=== PATIENT | female | born 1930 | race Caucasian/White ===

== ENCOUNTER 2016-08-19 19:38 | Inpatient (IN) | payer OTHER ==
--- NOTE | 2016-08-19 19:49 | EDPHY ---
H & P Time Seen by Provider: 08/19/16 19:41 HPI/ROS: CHIEF COMPLAINT: Shortness of breath, cough, fever HISTORY OF PRESENT ILLNESS: Patient is an 86-year-old [facility] complaining of a cough, shortness of breath and fever. They are concerned for pneumonia. She is very afraid we had anxious about the hospital according to her daughter because she had an unrecognized appendicitis several years ago after which she became critically ill. She does have a history of cardiac disease and had a double bypass 10 years ago. She does not have any history of pulmonary disease. She denies chest pain. She denies GI symptoms. REVIEW OF SYSTEMS: Constitutional: See HPI EENTM: denies: blurred vision, double vision, nose congestion Respiratory: See HPI Cardiac: denies: chest pain, irregular heart rate, lightheadedness, palpitations Gastrointestinal/Abdominal: denies: abdominal pain, diarrhea, nausea, vomiting, blood streaked stools Genitourinary: denies: dysuria, frequency, hematuria, pain Musculoskeletal: denies: joint pain, muscle pain Skin: denies: lesions, rash, jaundice, bruising Neurological: denies: headache, numbness, paresthesia, tingling, dizziness, weakness Hematologic/Lymphatic: denies: blood clots, easy bleeding, easy bruising Immunologic/allergic: denies: HIV/AIDS, transplant EXAM: GENERAL: Well-appearing, well-nourished and in no acute distress. HEAD: Atraumatic, normocephalic. EYES: Pupils equal round and reactive to light, extraocular movements intact, sclera anicteric, conjunctiva are normal. ENT: TMs normal, nares patent, oropharynx clear without exudates. Moist mucous membranes. NECK: Normal range of motion, supple without lymphadenopathy or JVD. LUNGS: Bilateral coarse sounds upper every, no wheezing HEART: Regular rate and rhythm without murmurs, rubs or gallops. ABDOMEN: Soft, nontender, normoactive bowel sounds. No guarding, no rebound. No masses appreciated. BACK: No CVA tenderness, no spinal tenderness, step-offs or deformities EXTREMITIES: Normal range of motion, no pitting or edema. No clubbing or cyanosis. NEUROLOGICAL: Cranial nerves II through XII grossly intact. Normal speech, normal gait. 5/5 strength, normal movement in all extremities, normal sensation PSYCH: Normal mood, normal affect. SKIN: Warm, dry, normal turgor, no visible rashes or lesions. Source: Patient Exam Limitations: No limitations - Medical/Surgical History Hx Asthma: No Hx Chronic Respiratory Disease: No Hx Diabetes: No Hx Cardiac Disease: Yes Hx Renal Disease: No Hx Cirrhosis: No Hx Alcoholism: No Hx HIV/AIDS: No Hx Splenectomy or Spleen Trauma: No Other PMH: AR 07, BYPASS 08,echo 11-09-2013-nml. HYST. ANX/ DEPR/MOOD/ COGNITIVE - Family History Significant Family History: No pertinent family hx - Social History Smoking Status: Never smoked Alcohol Use: Sober Drug Use: None Constitutional: Initial Vital Signs Temperature (C) 36.7 C 08/19/16 19:49 Heart Rate 101 H 08/19/16 19:49 Respiratory Rate 16 08/19/16 19:49 Blood Pressure 110/80 08/19/16 19:49 O2 Sat (%) 93 08/19/16 19:49 O2 Delivery Mode Room Air Allergies/Adverse Reactions: alendronate sodium [From Fosamax] Allergy (Unknown, Verified 08/19/16 19:49) Other-Enter Comments clopidogrel bisulfate [From Plavix] Allergy (Verified 08/19/16 19:49) Rash Home Medications: Medication Instructions Recorded Herbals/Supplements -Info Only 1 ea PO DAILY 11/17/13 Multivitamins [Multivitamin (*)] 1 each PO DAILY 11/17/13 Rosuvastatin Calcium [Crestor 40mg 40 mg PO DAILY18 #30 tab 12/09/13 (*)] Ticagrelor [Brilinta] 90 mg PO BID #60 tab 12/09/13 Quetiapine Fumarate [Seroquel Xr] 150 mg PO HS 04/12/14 fluvoxaMINE MALEATE [Luvox 100 MG 150 mg PO DAILY 04/12/14 (*)] C/E/Zn/Cu/OM3/DHA/EPA/LUT/ZEAX 1 each PO BID 08/19/16 [Preservision Areds 2 Softgel] Cholecalciferol Vit D3 [Vitamin D3 1,000 units PO DAILY 08/19/16 (*)] LORazepam [Ativan (*)] 0.5 mg PO BID PRN 08/19/16 Pantoprazole Sodium [Protonix] 20 mg PO DAILY 08/19/16 Potassium 99 mg PO BID 08/19/16 Medical Decision Making - Diagnostics EKG Interpretation: An EKG obtained and was read and documented in trace view. Please see trace view for full reading and report. , sinus rhythm, T-wave abnormalities has changed her previous ED Course/Re-evaluation: 8:40 p.m. the patient remains extremely anxious. Her states that she has not taken her p.r.n. Ativan today which she usually takes several times per day. Her oxygen saturation remains 96% on room air. Her blood pressure and heart rate are stable. 9:10 p.m. the patient has pneumonia and meets criteria for sepsis but not severe sepsis. I would give her a fluid bolus and start antibiotics for hospital-acquired pneumonia. She lives in assisted living. Her vital signs are stable but she is 86 years old and has a history of CHF as well as renal insufficiency. This places her at a port score of 118 with a 9.5% mortality risk. Discussed the case with hospitalist service will admit. Patient's D- dimer is slightly elevated but normal with age adjusted ratio. Her BNP is also minimally elevated but she has no edema in her legs or back side. Family states that she has not gained any weight. Differential Diagnosis: Partial list of the Differential diagnosis considered include but were not limited to; pneumonia, CHF, COPD, anxiety and although unlikely based on the history and physical exam, I also considered PE, acute coronary disease. - Data Points Laboratory Results: Laboratory Results 08/19/16 19:55 08/19/16 19:55 Microbiology Results: MICROBIOLOGY 08/19/16 19:55 Blood Blood Culture - Preliminary 08/19/16 21:11 Blood Blood Culture - Preliminary Medications Given: Discontinued Medications Fluvoxamine Maleate (Luvox) 150 mg PO BID [facility] Stop: 02/16/17 00:00 Last Admin: 08/20/16 00:42 Dose: 150 mg Piperacillin/Tazobactam/Dextrose (Zosyn (Premix)) 100 mls @ 200 mls/hr IV EDNOW ONE PRN Reason: Protocol Stop: 08/19/16 21:59 Last Admin: 08/19/16 21:37 Dose: 100 mls Sodium Chloride (Ns) 1,600 mls @ 3,200 mls/hr 30 ml/kg infuse over 30 min ( 1600 ml) IV EDNOW ONE Stop: 08/19/16 21:40 Last Admin: 08/19/16 21:36 Dose: 1,600 mls Lorazepam (Ativan) 0.5 mg PO EDNOW ONE Stop: 08/19/16 20:43 Last Admin: 08/19/16 21:18 Dose: 0.5 mg Miscellaneous Medication (Potassium [Potassium]) 99 mg PO BID [facility] Stop: 02/16/17 08:59 Last Admin: 08/20/16 10:32 Dose: Not Given Departure - Departure Disposition: [facility] Acute Clinical Impression: Anxiety Pneumonia Qualifiers: Pneumonia type: due to unspecified organism Laterality: unspecified laterality Lung location: unspecified part of lung Qualified Code(s): J18.9 - Pneumonia, unspecified organism Condition: Fair
--- NOTE | 2016-08-19 20:04 | CPEKG ---
Heart Rate: 89 RR Interval: 674 P-R Interval: 144 QRSD Interval: 104 QT Interval: 381 QTC Interval: 464 P [place]: 58 QRS [place]: -10 T Wave [place]: 75 EKG Severity - BORDERLINE ECG - EKG Impression: SINUS RHYTHM EKG Impression: LOW VOLTAGE IN FRONTAL LEADS EKG Impression: BORDERLINE T ABNORMALITIES, ANT-LAT LEADS EKG Impression: Unchanged from previous Electronically Signed By: Pepito Bradshaw 19-Aug-2016 20:28:58
[2016-08-19] MEDS ORDERED: LORazepam 1 MG TAB PO ONE (20:42)
[2016-08-19 20:44] LABS: % IMMATURE GRANULYOCYTES 0.2 % (0.0-1.1); ABSOLUTE IMMATURE GRANULOCYTES 0.02 10^3/uL (0.00-0.10); ADD DIFF? NO; ADD MORPH? NO; ADD SCAN? NO; ATYPICAL LYMPHOCYTE FLAG 30 (0-99); FRAGMENT RBC FLAG 0 (0-99); HEMATOCRIT 39.7 % (38.0-47.0); HEMOGLOBIN 13.4 g/dL (12.6-16.3); LEFT SHIFT FLG 0 (0-99); LIPEMIA HEMOLYSIS FLAG 90 (0-99); MEAN CELL HEMOGLOBIN 30.1 pg (27.9-34.1); MEAN CELL HEMOGLOBIN CONCENTR. 33.8 g/dL (32.4-36.7); MEAN CELL VOLUME 89.2 fL (81.5-99.8); MEAN PLATELET VOLUME 10.5 fL (8.7-11.7); PLATELET CLUMPS FLAG 10 (0-99); PLATELET COUNT 240 10^3/uL (150-400); RED BLOOD CELL COUNT 4.45 10^6/uL (4.18-5.33); RED CELL DISTRIBUTION WIDTH 16.7 % (11.5-15.2)
[2016-08-19 20:50] LABS: ANION GAP 12 mEq/L (8-16); CALCIUM 9.7 mg/dL (8.5-10.4); CARBON DIOXIDE 19 mEq/l (22-31); CHLORIDE 107 mEq/L (97-110); CREATININE 1.2 mg/dL (0.6-1.0); GLOMERULAR FILTRATION RATE 42; GLUCOSE 106 mg/dL (70-100); POTASSIUM 3.9 mEq/L (3.5-5.2); SODIUM 138 mEq/L (134-144)
[2016-08-19 21:02] LABS: TROPONIN I < 0.012 ng/mL (0-0.034)
[2016-08-19] MEDS ORDERED: NS 1,600 ML IV ONE (21:11)
[2016-08-19 21:19] LABS: INR 1.05 (0.83-1.16); PROTIME(PATIENT) 13.6 SEC (12.0-15.0)
[2016-08-19 21:20] LABS: APTT 28.9 SEC (23.0-38.0)
[2016-08-19 21:21] LABS: BILIRUBIN,TOTAL 1.4 mg/dL (0.1-1.4)
[2016-08-19] MEDS ORDERED: PIPERACILLIN/TAZO 4.5 GM/DEX 100 ML IV ONE (21:30)
[2016-08-19] MEDS ORDERED: ONDANSETRON 4 MG/2 ML VIAL IVP PRN (22:44)
[2016-08-19] MEDS ORDERED: predniSONE 20 MG TAB ONE (22:44)
[2016-08-19] MEDS ORDERED: ACETAMINOPHEN 325 MG TAB PO PRN (22:44)
[2016-08-19] MEDS: predniSONE 20 MG TAB PO SCH (22:49)
--- NOTE | 2016-08-19 23:42 | GHP ---
[f rep st] HISTORY AND PHYSICAL DATE OF ADMISSION: 08/19/2016 CHIEF COMPLAINT: Cough and fever. HISTORY OF PRESENT ILLNESS: The patient is an 86-year-old female who has been suffering from cough, shortness of breath, and fever for the last 3 days. They recently moved into a new assisted living apartment and the apartment is very draft. night, she initially felt hot and threw off he r covers and then ended up getting extremely chilled in the middle of the night from the draft. The next morning, she woke up feeling quite ill. She developed a new cough, which is nonproductive. S he has been feeling more short of breath. She has brief tinges of chest pain in her mid chest. Tod ay, she had a fever to 103 at assisted living, so she was sent to the emergency room. She does not have any confusion. PAST MEDICAL HISTORY: 1. Chronic kidney disease, baseline creatinine 1.3. 2. Coronary artery disease, status post CABG 2007. 3. Diastolic congestive heart failure. 4. Pulmonary embolus 2007. 5. Upper GI secondary to gastric ulcer. 6. Major depressive disorder. 7. Anxiety and obsessive-compulsive disorder. 8. Oxygen at night. PAST SURGICAL HISTORY: Perforated appendectomy with critical illness, which she eventually recovere d from. MEDICATIONS: Please see computer record for full detailed list. ALLERGIES: Plavix. SOCIAL HISTORY: No smoking. No alcohol. She and her recently moved into the [facility]. Code status is full. REVIEW OF SYSTEMS: Complete review of systems obtained. Review of systems is negative regarding co nstitutional, HEENT, GI, pulmonary, cardiovascular, , hematology, skin, musculoskeletal, endocrine , psych, except for positives and pertinent negatives listed as in HPI. FAMILY HISTORY: Reviewed, noncontributory to current complaint. PHYSICAL EXAMINATION: GENERAL: Well-developed well-nourished female in no acute distress. VITAL S IGNS: Temperature is 37.1, pulse 101, blood pressure 126/75, saturating 94% on room air. EYES: No rmal conjunctivae. Pupils equal, round, react to light. ENT: Normal ears and nose. Hearing intac t. Normal teeth. Oropharynx moist. NECK: Trachea midline. No thyromegaly. CHEST: Increased re spiratory effort with mild distress. LUNGS: Bilateral wheezing throughout with some rhonchi. CARD IOVASCULAR: Regular rhythm. No murmur. No lower extremity edema. ABDOMEN: Soft, nontender. No hepatosplenomegaly. SKIN: Warm, dry, intact, without rash. MUSCULOSKELETAL: No cyanosis or clubb ing. Strength 5/5 upper and lower extremities. NEURO: Cranial nerves intact. Normal sensation to light touch. PSYCH: Alert and oriented x3. Normal affect. Normal judgment. Normal memory. LABORATORY DATA: White count 9.98 hematocrit 34.7, platelets 240. Sodium 138, potassium 3.9, chlor kat 107, bicarb 19, BUN 22, creatinine 1.2, glucose 106. BNP is 629. Troponin is negative. Lactat e is 1.5. D-dimer 0.65. INR is 1.05. EKG reviewed by me. My personal interpretation is normal sinus rhythm, low voltage throughout with T-wave flattening. Chest x-ray does not show a terribly obvious infiltrate. This case was discussed with Dr. Bradshaw, emergency room physician. He diagnosed her with sepsis, i nitiated sepsis protocol, and gave a dose of IV Zosyn. ASSESSMENT AND PLAN: Problems: 1. Reactive airways disease exacerbation. She is wheezing quite extensively. She does not have a history of asthma or chronic obstructive pulmonary disease. I think this is being brought out by he r current infection. This is either acute bronchitis versus a possible pneumonia. She does have qu ite a high fever. Will treat with prednisone and nebulizers. Antibiotics for community-acquired pn eumonia including ceftriaxone and azithromycin. 2. Sepsis. She presents with fever and tachycardia. Her lactate is only 1.5. Blood cultures will be monitored. 3. Chronic congestive heart failure secondary to diastolic dysfunction. I do not see any evidence of congestive heart failure exacerbation. She is having some atypical chest pains. Will follow trop onins. My suspicion for coronary ischemia is low. Will check an echocardiogram. She does have a h istory of pulmonary embolus distantly and is not currently on any anticoagulation. Her D-dimer is o nly mildly elevated and given her active wheezing on presentation, I think I do not need to pursue p ulmonary embolus further at this time. If she fails to improve, however, this can be considered. 4. Coronary artery disease, status post coronary artery bypass grafting in 2007. Will continue her usual medication regimen and check troponins. 5. Chronic kidney disease. She is at baseline. CODE STATUS: Full. ADMISSION STATUS: Will admit to inpatient. Anticipate greater than 2 midnights required. DVT PROPHYLAXIS: She is high risk. Will prescribe subcu Lovenox. /[id number]/MODL
[2016-08-20] MEDS: AZITHROMYCIN 250 MG TAB PO SCH ×2 (00:06→10:07)
[2016-08-20] MEDS: IPRATROPIUM/ALBUTEROL 3 ML DEYVIAL IH SCH ×5 (00:31→21:32)
[2016-08-20] MEDS: QUEtiapine FUMARATE 100 MG TAB PO SCH ×2 (00:43→20:19)
[2016-08-20 05:12] LABS: ANION GAP 14 mEq/L (8-16); CALCIUM 9.1 mg/dL (8.5-10.4); CARBON DIOXIDE 19 mEq/l (22-31); CHLORIDE 106 mEq/L (97-110); CREATININE 1.3 mg/dL (0.6-1.0); GLOMERULAR FILTRATION RATE 39; GLUCOSE 226 mg/dL (70-100); POTASSIUM 3.6 mEq/L (3.5-5.2); SODIUM 139 mEq/L (134-144)
[2016-08-20 05:13] LABS: % IMMATURE GRANULYOCYTES 0.6 % (0.0-1.1); ABSOLUTE IMMATURE GRANULOCYTES 0.05 10^3/uL (0.00-0.10); ADD DIFF? NO; ADD MORPH? NO; ADD SCAN? NO; ATYPICAL LYMPHOCYTE FLAG 10 (0-99); FRAGMENT RBC FLAG 0 (0-99); HEMATOCRIT 36.9 % (38.0-47.0); HEMOGLOBIN 12.1 g/dL (12.6-16.3); LEFT SHIFT FLG 0 (0-99); LIPEMIA HEMOLYSIS FLAG 80 (0-99); MEAN CELL HEMOGLOBIN 29.4 pg (27.9-34.1); MEAN CELL HEMOGLOBIN CONCENTR. 32.8 g/dL (32.4-36.7); MEAN CELL VOLUME 89.8 fL (81.5-99.8); PLATELET CLUMPS FLAG 0 (0-99); PLATELET COUNT 190 10^3/uL (150-400); RED BLOOD CELL COUNT 4.11 10^6/uL (4.18-5.33); RED CELL DISTRIBUTION WIDTH 16.9 % (11.5-15.2)
[2016-08-20 05:24] LABS: TROPONIN I < 0.012 ng/mL (0-0.034)
[2016-08-20] MEDS ORDERED: Potassium [Potassium] 99 MG PO SCH (09:00)
[2016-08-20] MEDS: predniSONE 20 MG TAB PO SCH (10:07)
[2016-08-20] MEDS: TICAGRELOR 90 MG TAB PO SCH ×2 (10:08→20:19)
[2016-08-20] MEDS: PANTOPRAZOLE SODIUM 40 MG TAB PO SCH ×2 (10:08→10:36)
[2016-08-20] MEDS: ENOXAPARIN 30 MG/0.3 ML SYR SC SCH (10:08)
[2016-08-20] MEDS: PRESERVISION AREDS2 FORMULA EYE VIT 1 EACH PO SCH ×2 (10:08→20:20)
--- NOTE | 2016-08-20 11:30 | HOSPPROG ---
Hospitalist Progress Note Assessment/Plan: 86-year-old with multiple medical issues including asthma, heart disease and heart failure presents with increasing shortness of breath and cough. She was started on antibiotics and prednisone and is feeling improved today. # acute respiratory failure from RAD exacerbation secondary to parainfluenza virus. * Continue steroid taper * Continue antibiotics for possible secondary pneumonia, however likely symptoms secondary to viral illness # coronary artery disease, no symptoms currently. On Brilinta and Crestor. * Monitor symptoms # chronic diastolic congestive heart failure, stable # chronic renal insufficiency with baseline creatinine at 1.3 # severe major depression and associated anxiety disorder, appears stable # history of PE currently not on anticoagulation continue Lovenox for prophylaxis # history of GI bleed, stable Subjective: Patient new to me, chart reviewed. Feeling better on current therapy. Will follow today and likely home tomorrow if she continues to improve and is stable on oxygen. Objective: Vital Signs Temp Pulse Resp BP Pulse Ox 36.9 C 98 18 108/72 93 08/20/16 07:54 08/20/16 07:54 08/20/16 07:54 08/20/16 07:54 08/20/16 07:54 Microbiology 08/20/16 02:00 Respiratory Panel (PCR) - Final Nasal, Sinus - Anaerobic Tube/Swab Parainfluenza Virus Type 3 Laboratory Results 08/20/16 04:48 08/20/16 04:48 08/19/16 08/20/16 08/21/16 05:59 05:59 05:59 Intake Total 200 Balance 200 PT 13.6 SEC (12.0-15.0) 08/19/16 19:55 INR 1.05 (0.83-1.16) 08/19/16 19:55 - Physical Exam Constitutional: appears nourished, not in pain, chronically ill appearing Eyes: PERRL, anicteric sclera Ears, Nose, Mouth, Throat: moist mucous membranes Cardiovascular: regular rate and rhythym, No edema Respiratory: reduced air movement, respiratory distress, No expiratory wheeze, No inspiratory crackles Gastrointestinal: normoactive bowel sounds, soft, non-tender abdomen, no palpable masses Genitourinary: no bladder fullness Skin: warm, normal color Musculoskeletal: generalized weakness Neurologic: AAOx3 Psychiatric: interacting appropriately, not anxious ICD10 Worksheet Patient Problems: Problems Problem Status Onset Appendicitis with perforation Acute Pneumonia Acute Anxiety Acute
[2016-08-20 12:16] LABS: COLOR PALE YELLOW; LEUKOCYTE ESTERASE,URINE 2+ (NEGATIVE); NITRITE,URINE NEGATIVE (NEGATIVE)
[2016-08-20 12:21] LABS: BACTERIA 2+ /hpf (NONE SEEN); MUCUS TRACE /lpf (NONE-1+); WBC,URINE 25-50 /hpf (0-3)
--- NOTE | 2016-08-20 15:54 | ECHO ---
[id number] + + [id number] : : [place] [address] : : [phone] + + Adult Echocardiographic Report + -----+ :Name: DEE VALLE MStudy Date: 08/20/2016 09:23 AM : : Hospital Admission Number: [id number] Location : 379: :: 1930 Gender: Female Height: 56 in : :Age: 86 yrs Race: WH Weight: 118 lb : :Reason For Study: Eval LV Fx : : BSA: 1.4 meters2 : :History: Pneumonia, Question CHF : + -----+ MMode/2D Measurements \T\ Calculations IVSd: 1.0 cm LVIDd: 4.1 cm FS: 26.3 % Ao root diam: LVPWd: 1.1 cm LVIDs: 3.0 cm EDV(Teich): 3.1 cm 75.5 ml ACS: 1.7 cm ESV(Teich): 36.3 ml EF(Teich): 52.0 % LVLd ap4: 6.2 cm SV(MOD-sp4): EDV(MOD-sp4): 29.0 ml 50.0 ml LVLs ap4: 5.5 cm ESV(MOD-sp4): 21.0 ml EF(MOD-sp4): 58.0 % Normal Measurement Values: + + :LVIDd (3.5-5.7cm) IVSd (0.6-1.1cm) LVPWd (0.6-1.1cm) Aortic Root (2.0-3.7cm)Left Atrium (1.5-4.0cm): :LV Vol(d) (76-115ml) LV Vol(s) (29-48ml) Ejec Fraction (50-65%)PV Matias (0.6- 1.2m/s) TV Matias (0.4-1.0m/s) : :MV E Matias (0.8-1.0m/s)MV A Matias (0.3-1.0m/s)LVOT Matias (0.7-1.2m/s) Asc Ao Matias ( 0.9-1.8m/s) : + + Doppler Measurements \T\ Calculations MV E max matias: Ao V2 max: LV V1 max: PA V2 max: 63.7 cm/sec 133.0 cm/sec 73.1 cm/sec 92.3 cm/sec MV A max matias: Ao max P.1 mmHgLV V1 max PG: PA max P.8 cm/sec 2.1 mmHg 3.4 mmHg MV E/A: 0.50 TR max matias: 314.9 cm/sec TR max P.7 mmHg RAP systole: 5.0 mmHg RVSP(TR): 44.7 mmHg Left Ventricle The left ventricle is normal in size. There is normal left ventricular wall thickness. Ejection Fraction = 50%. There is Doppler evidence for diastolic dysfunction. There is basilar to mid inferolateral and basilar to mid inferolateral hypokinesis. The left ventricular ejection fraction is calculated at 52.0 %. There are regional wall motion abnormalities as specified. Right Ventricle The right ventricle is normal in size and function. The right ventricular systolic function is normal. Atria The left atrial size is normal. Right atrial size is normal. Mitral Valve The mitral valve is normal in structure and function. There is no evidence of mitral valve prolapse. There is no mitral valve stenosis. There is no mitral regurgitation noted. Tricuspid Valve There is trace tricuspid regurgitation. Right ventricular systolic pressure is 45mmHg. There is Doppler evidence for mild pulmonary hypertension. Aortic Valve The aortic valve is normal in structure and function. The aortic valve is trileaflet. There is no aortic stenosis. There is no aortic insufficiency. Pulmonic Valve The pulmonic valve is not well visualized. There is no pulmonic valvular regurgitation. Great Vessels The aortic root is normal size. Pericardium/Pleural There is no pericardial effusion. There is a fat pad seen. Conclusion A complete two-dimensional transthoracic echocardiogram was performed (2D, M-mode, Doppler and color flow Doppler). (1) Left ventricular systolic ejection fraction was low normal (50%) - mild inferolateral hypokinesis was noted (2) No left ventricular hypertrophy (3) Diastolic dysfunction was present (4) Normal right ventricular size and function (5) Grossly normal atrial dimensions (6) Grossly normal mitral valve (7) Trileaflet aortic valve without insufficiency or appreciable sclerosis (8) Physiologic tricuspid regurgitation - RVSP was estimated to be 45 mm Hg (9) Poor visualization of the pulmonic valve (10) In comparison to prior echocardiogram from 11-18-13, no significant changes noted. Final Reading Physician: Trina Ballesteros signed on 08/20/2016 03:52 PM Ordering Physician: Vita Trinidad Performed By: Jose R Cui, MAXICS
[2016-08-20] MEDS: ROSUVASTATIN CALCIUM 40 MG TAB PO SCH (17:40)
[2016-08-20] MEDS: LORazepam 0.5 MG TAB PO PRN ×2 (17:45→20:24)
[2016-08-20] MEDS: Potassium [Potassium] 99 MG PO SCH (20:25)
[2016-08-20] MEDS ORDERED: QUEtiapine FUMARATE 100 MG TAB PO SCH (21:00)
[2016-08-21] MEDS: IPRATROPIUM/ALBUTEROL 3 ML DEYVIAL IH SCH ×4 (05:24→23:40)
[2016-08-21] MEDS: PANTOPRAZOLE SODIUM 40 MG TAB PO SCH (09:59)
[2016-08-21] MEDS: TICAGRELOR 90 MG TAB PO SCH ×2 (09:59→21:01)
[2016-08-21] MEDS: AZITHROMYCIN 250 MG TAB PO SCH (09:59)
[2016-08-21] MEDS: predniSONE 20 MG TAB PO SCH (09:59)
[2016-08-21] MEDS: PRESERVISION AREDS2 FORMULA EYE VIT 1 EACH PO SCH ×2 (09:59→21:01)
[2016-08-21] MEDS: ENOXAPARIN 30 MG/0.3 ML SYR SC SCH (10:00)
[2016-08-21] MEDS: Potassium [Potassium] 99 MG PO SCH ×2 (10:35→22:42)
--- NOTE | 2016-08-21 15:22 | HOSPPROG ---
Hospitalist Progress Note Assessment/Plan: 86-year-old with multiple medical issues including asthma, heart disease and heart failure presents with increasing shortness of breath and cough. She was started on antibiotics and prednisone and is feeling improved but still short of breath and on significant oxygen. # acute respiratory failure from RAD exacerbation secondary to parainfluenza virus. * Continue steroid taper * Continue antibiotics for possible secondary pneumonia, however likely symptoms secondary to viral illness # coronary artery disease, no symptoms currently. On Brilinta and Crestor. * Monitor symptoms # chronic diastolic congestive heart failure, stable # chronic renal insufficiency with baseline creatinine at 1.3 # severe major depression and associated anxiety disorder, appears stable # history of PE currently not on anticoagulation continue Lovenox for prophylaxis # history of GI bleed, stable * Disposition: Patient needs additional 1-3 days for her respiratory status to improve. Will also continue physical therapy to make sure she is strong enough to return [facility] Subjective: Still short of breath. But feeling a bit stronger today. Objective: Vital Signs Temp Pulse Resp BP Pulse Ox 36.7 C 97 16 104/74 96 08/21/16 15:13 08/21/16 15:13 08/21/16 15:13 08/21/16 15:13 08/21/16 15:13 Laboratory Results 08/20/16 04:48 08/20/16 04:48 08/20/16 08/21/16 08/22/16 05:59 05:59 05:59 Intake Total 200 460 Output Total 300 Balance 200 160 PT 13.6 SEC (12.0-15.0) 08/19/16 19:55 INR 1.05 (0.83-1.16) 08/19/16 19:55 - Physical Exam Constitutional: chronically ill appearing Eyes: PERRL, EOMI Ears, Nose, Mouth, Throat: moist mucous membranes Cardiovascular: regular rate and rhythym Respiratory: expiratory wheeze, bronchial breath sounds, respiratory distress Gastrointestinal: normoactive bowel sounds, soft, non-tender abdomen Neurologic: AAOx3 Psychiatric: interacting appropriately ICD10 Worksheet Patient Problems: Problems Problem Status Onset Appendicitis with perforation Acute Pneumonia Acute Anxiety Acute
[2016-08-21] MEDS: LORazepam 0.5 MG TAB PO PRN (16:54)
[2016-08-21] MEDS: ROSUVASTATIN CALCIUM 40 MG TAB PO SCH (17:16)
[2016-08-21] MEDS: QUEtiapine FUMARATE 100 MG TAB PO SCH (21:01)
[2016-08-22] MEDS: IPRATROPIUM/ALBUTEROL 3 ML DEYVIAL IH SCH ×4 (05:32→22:38)
[2016-08-22] MEDS: ENOXAPARIN 30 MG/0.3 ML SYR SC SCH (10:06)
[2016-08-22] MEDS: AZITHROMYCIN 250 MG TAB PO SCH (10:06)
[2016-08-22] MEDS: PANTOPRAZOLE SODIUM 40 MG TAB PO SCH (10:06)
[2016-08-22] MEDS: TICAGRELOR 90 MG TAB PO SCH ×2 (10:06→20:29)
[2016-08-22] MEDS: PRESERVISION AREDS2 FORMULA EYE VIT 1 EACH PO SCH ×2 (10:06→20:28)
[2016-08-22] MEDS: predniSONE 20 MG TAB PO SCH (10:07)
[2016-08-22] MEDS: Potassium [Potassium] 99 MG PO SCH (10:07)
[2016-08-22] MEDS: LORazepam 0.5 MG TAB PO PRN ×2 (10:28→16:53)
[2016-08-22] MEDS: methylPREDNISolone SOD SUCC 40 MG/ML VIAL IVP SCH ×2 (13:31→18:00)
--- NOTE | 2016-08-22 14:50 | HOSPPROG ---
Hospitalist Progress Note Assessment/Plan: 86-year-old with multiple medical issues including asthma, heart disease and heart failure presents with increasing shortness of breath and cough. She was started on antibiotics and prednisone and is feeling improved but still short of breath and on significant oxygen. # acute respiratory failure from RAD exacerbation secondary to parainfluenza virus.- CXR (personally reviewed and interpreted) no infiltrates oxygen saturations 92% on 3L - Continue steroid taper - completing antibiotics for possible secondary pneumonia # Anxiety - I think provoked by dyspnea - trial ativan 0.25mg # coronary artery disease, no symptoms currently. - cont Brilinta and Crestor. - Monitor symptoms # chronic diastolic congestive heart failure- compensated # chronic renal insufficiency - creatinine remains 1.3 # severe major depression and associated anxiety disorder, appears stable # history of PE currently not on anticoagulation continue Lovenox for prophylaxis # history of GI bleed, stable # Disposition> 2MN as needing more supportive and respiratory care Will also continue physical therapy to make sure she is strong enough to return to [facility] I have discussed the case with CM - will need PT and [place] nursing [place] Subjective: still feels sob Objective: Vital Signs Temp Pulse Resp BP Pulse Ox 36.3 C 91 20 111/56 L 92 08/22/16 11:51 08/22/16 11:51 08/22/16 11:51 08/22/16 11:51 08/22/16 11:51 Microbiology 08/20/16 12:17 Urine Culture - Final Urine,Clean Catch Laboratory Results 08/20/16 04:48 08/20/16 04:48 08/21/16 08/22/16 08/23/16 05:59 05:59 05:59 Intake Total 460 350 Output Total 300 300 Balance 160 350 -300 PT 13.6 SEC (12.0-15.0) 08/19/16 19:55 INR 1.05 (0.83-1.16) 08/19/16 19:55 - Physical Exam Constitutional: chronically ill appearing Eyes: anicteric sclera Ears, Nose, Mouth, Throat: moist mucous membranes Cardiovascular: regular rate and rhythym Respiratory: expiratory wheeze Gastrointestinal: normoactive bowel sounds Genitourinary: no bladder fullness Skin: warm, normal color Musculoskeletal: No asymmetric calves Neurologic: AAOx3 Psychiatric: anxious Lymph, Heme, Immunologic: no cervical LAD ICD10 Worksheet Patient Problems: Problems Problem Status Onset Anxiety Acute Pneumonia Acute Appendicitis with perforation Acute
[2016-08-22] MEDS: ROSUVASTATIN CALCIUM 40 MG TAB PO SCH (18:00)
[2016-08-22] MEDS: QUEtiapine FUMARATE 100 MG TAB PO SCH (20:28)
[2016-08-22] MEDS: guaiFENesin 600 MG TAB.ER PO SCH (20:28)
[2016-08-23] MEDS: methylPREDNISolone SOD SUCC 40 MG/ML VIAL IVP SCH ×5 (01:46→23:05)
[2016-08-23 05:25] LABS: ANION GAP 11 mEq/L (8-16); CALCIUM 9.3 mg/dL (8.5-10.4); CARBON DIOXIDE 21 mEq/l (22-31); CHLORIDE 107 mEq/L (97-110); GLOMERULAR FILTRATION RATE 52; GLUCOSE 237 mg/dL (70-100); POTASSIUM 4.1 mEq/L (3.5-5.2); SODIUM 139 mEq/L (134-144)
[2016-08-23] MEDS: IPRATROPIUM/ALBUTEROL 3 ML DEYVIAL IH SCH ×4 (06:26→22:09)
[2016-08-23] MEDS: ENOXAPARIN 30 MG/0.3 ML SYR SC SCH (08:11)
[2016-08-23] MEDS: guaiFENesin 600 MG TAB.ER PO SCH ×2 (08:11→19:58)
[2016-08-23] MEDS: PRESERVISION AREDS2 FORMULA EYE VIT 1 EACH PO SCH ×2 (08:11→19:58)
[2016-08-23] MEDS: AZITHROMYCIN 250 MG TAB PO SCH (08:11)
[2016-08-23] MEDS: PANTOPRAZOLE SODIUM 40 MG TAB PO SCH (08:11)
[2016-08-23] MEDS: TICAGRELOR 90 MG TAB PO SCH ×2 (08:11→19:58)
[2016-08-23] MEDS: LORazepam 0.5 MG TAB PO PRN ×2 (11:28→18:36)
--- NOTE | 2016-08-23 15:24 | HOSPPROG ---
Hospitalist Progress Note Assessment/Plan: 86-year-old with multiple medical issues including asthma, heart disease and heart failure presents with increasing shortness of breath and cough. She was started on antibiotics and prednisone and is feeling improved but still short of breath and on significant oxygen. # acute respiratory failure from RAD exacerbation secondary to parainfluenza virus.- CXR (personally reviewed and interpreted) no infiltrates oxygen saturations 92% on 2L - Continue steroid taper - completing antibiotics for possible secondary pneumonia # Anxiety - I think provoked by dyspnea - - cont ativan 0.25mg # coronary artery disease, no symptoms currently. - cont Brilinta and Crestor. 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, appears stable # history of PE currently not on anticoagulation continue Lovenox for prophylaxis # history of GI bleed, stable # Disposition> 2MN as needing more supportive and respiratory care Will also continue physical therapy to make sure she is strong enough to [facility] I have discussed the case with CM - will need PT and likely nursing support at tx Subjective: tearful and wants to go home Objective: Vital Signs Temp Pulse Resp BP Pulse Ox 36.7 C 89 18 108/63 91 L 08/23/16 11:52 08/23/16 11:52 08/23/16 11:52 08/23/16 11:52 08/23/16 11:52 Microbiology 08/20/16 12:17 Urine Culture - Final Urine,Clean Catch Laboratory Results 08/20/16 04:48 08/23/16 04:31 08/22/16 08/23/16 08/24/16 05:59 05:59 05:59 Intake Total 350 300 Output Total 300 Balance 350 0 PT 13.6 SEC (12.0-15.0) 08/19/16 19:55 INR 1.05 (0.83-1.16) 08/19/16 19:55 - Physical Exam Constitutional: appears nourished Eyes: anicteric sclera Ears, Nose, Mouth, Throat: moist mucous membranes Cardiovascular: regular rate and rhythym, systolic murmur Respiratory: No expiratory wheeze Gastrointestinal: normoactive bowel sounds, soft, non-tender abdomen Genitourinary: no bladder fullness Skin: warm, normal color Musculoskeletal: No asymmetric calves Neurologic: AAOx3 Psychiatric: depressed Lymph, Heme, Immunologic: no cervical LAD ICD10 Worksheet Patient Problems: Problems Problem Status Onset Appendicitis with perforation Acute Pneumonia Acute Anxiety Acute
[2016-08-23] MEDS: ROSUVASTATIN CALCIUM 40 MG TAB PO SCH (18:31)
[2016-08-23] MEDS: QUEtiapine FUMARATE 100 MG TAB PO SCH (19:57)
[2016-08-23 23:10] VITALS: O2SAT 92
[2016-08-24] MEDS: IPRATROPIUM/ALBUTEROL 3 ML DEYVIAL IH SCH ×2 (05:27→13:02)
[2016-08-24] MEDS: methylPREDNISolone SOD SUCC 40 MG/ML VIAL IVP SCH (06:19)
[2016-08-24 08:43] VITALS: BP 129/66; TEMP 97.4
--- NOTE | 2016-08-24 09:26 | PDIAF ---
- Diagnosis Diagnosis: parainfluenz and RAD Code Status: Full Code - Medication Management Discharge Medications: Medications to Continue on Transfer Herbals/Supplements -Info Only 1 ea PO DAILY 11/17/13 [Last Taken 08/19/16] Multivitamins [Multivitamin (*)] 1 each PO DAILY 11/17/13 [Last Taken 08/19/16] Rosuvastatin Calcium [Crestor 40mg (*)] 40 mg PO DAILY18 #30 tab 12/09/13 [Last Taken 08/18/16] Ticagrelor [Brilinta] 90 mg PO BID #60 tab 12/09/13 [Last Taken 08/19/16 09:00] Quetiapine Fumarate [Seroquel Xr] 150 mg PO HS 04/12/14 [Last Taken 08/18/16] fluvoxaMINE MALEATE [Luvox 100 MG (*)] 150 mg PO DAILY 04/12/14 [Last Taken ] C/E/Zn/Cu/OM3/DHA/EPA/LUT/ZEAX [Preservision Areds 2 Softgel] 1 each PO BID [Last Taken 08/19/16] Cholecalciferol Vit D3 [Vitamin D3 (*)] 1,000 units PO DAILY 08/19/16 [Last Taken 08/19/16] LORazepam [Ativan (*)] 0.5 mg PO BID PRN 08/19/16 [Last Taken 08/19/16] Pantoprazole Sodium [Protonix] 20 mg PO DAILY 08/19/16 [Last Taken 08/19/16] Potassium 99 mg PO BID 08/19/16 [Last Taken 08/19/16] Discharge Medications: Refer to the Discharge Home Medication list for PRN reason. - Orders Services needed: Home Care, Registered Nurse, Physical Therapy, Occupational Therapy Home Care Face to Face: I certify that this patient was under my care and that I had the required [id number] encounter meeting the encounter requirements on the discharge day. My findings support the fact that the patient is homebound as defined in CMS Chapter 7 Medicare Benefits Manual 30.1.1, The condition of the patient is such that there exists a normal inability to leave home and consequently, leaving home would require a considerable and taxing effort. Diet Recommendation: no restrictions on diet Diet Texture: Regular Texture Diet - Follow Up Care Current Providers and Referrals: Patient,NotPresent [Unknown] - As per Instructions
[2016-08-24] MEDS: guaiFENesin 600 MG TAB.ER PO SCH (09:32)
[2016-08-24] MEDS: TICAGRELOR 90 MG TAB PO SCH (09:33)
[2016-08-24] MEDS: PRESERVISION AREDS2 FORMULA EYE VIT 1 EACH PO SCH (09:33)
[2016-08-24] MEDS: ENOXAPARIN 30 MG/0.3 ML SYR SC SCH (09:33)
[2016-08-24] MEDS: AZITHROMYCIN 250 MG TAB PO SCH (09:33)
[2016-08-24] MEDS: PANTOPRAZOLE SODIUM 40 MG TAB PO SCH (09:33)
[2016-08-24] MEDS: LORazepam 0.5 MG TAB PO PRN (11:35)
[2016-08-24 13:09] VITALS: PULSE 88; RESP 18
--- NOTE | 2016-08-24 15:53 | GDS ---
[f rep st] DISCHARGE SUMMARY DISCHARGE DIAGNOSES: Include: 1. Acute parainfluenza. 2. Acute respiratory failure secondary to parainfluenza and reactive airway exacerbation. 3. Anxiety. 4. Coronary artery disease. 5. Chronic diastolic heart failure. 6. Chronic kidney disease. 7. Major depression. 8. History of gastrointestinal bleed. HISTORY OF PRESENT ILLNESS: An 86-year-old female, who presents with severe shortness of breath. F or details of the patient's initial presentation, please see the history and physical dated 08/20/19 17. CONSULTATIONS: None. PROCEDURES: None. HOSPITAL COURSE: 1. Acute hypoxic respiratory failure. Patient's respiratory PCR was positive for parainfluenza. P atient was extremely wheezy and treated appropriately with steroid therapy and inhaled medications. Because there was some confusion about the duration of symptoms and then purely being from a viral pathogen, she was treated for atypical pneumonia with a full course of azithromycin. On the day of disposition, the patient is not wheezing at all, has completed a steroid burst, will be discharged o n inhaled albuterol as needed and supplemental oxygen until weanable. She has completed a full cour se of azithromycin. 2. Anxiety. This was prominent during this hospital stay. We did use intermittent Ativan. We toy l be discharging her on her home medications without change. She should follow with her outpatient PCP for ongoing management of her psychiatric health. 3. CKD. Patient's creatinine was 1.0 at disposition. 4. Coronary artery disease. Patient did not have chest pain symptoms during this stay. She was co ntinued on her cardiac medications without alteration. DISCHARGE MEDICATIONS: Please reference medication reconciliation printed on 08/24/2016. Pending studies at the time of this dictation include blood cultures drawn 08/19/2016, which are pre liminary no growth to date. FOLLOWUP: Appointments include with her outpatient primary care provider for post disposition syeda mlain in the next 1-2 weeks. PCP can check her oxygen saturations and inform when safe to discontinue supplemental oxygen. I spent greater than 30 minutes in the planning and coordination of this discharge. /[id number]/MODL
== END 2016-08-24 13:29 | disposition home health service (06) | DRG 189 ==
LOC: OBSVTOIN 22:42 → F3E 23:17
PROVIDERS: ADMIT Internal Medicine; ATTEND Hospitalist
DX: J96.01 Acute respiratory failure with hypoxia (principal); J45.901 Unspecified asthma with (acute) exacerbation; J12.2 Parainfluenza virus pneumonia; N18.3 Chronic kidney disease, stage 3 (moderate); I50.32 Chronic diastolic (congestive) heart failure; I25.10 Atherosclerotic heart disease of native coronary artery without angina pectoris; F41.9 Anxiety disorder, unspecified; Z86.711 Personal history of pulmonary embolism; Z87.11 Personal history of peptic ulcer disease; I25.2 Old myocardial infarction; Z95.1 Presence of aortocoronary bypass graft
CPT/HCPCS: 96365; 97116-GP; 97161-GP; 97165-GO; 97535-GO; G8978-GP-CK; G8979-GP-CI; G8987-GO-CI; G8988-GO-CI; J0696; J1650; J2543

== ENCOUNTER 2017-07-14 21:01 | Emergency (ER) | payer OTHER ==
--- NOTE | 2017-07-14 21:15 | EDPHY ---
H & P Stated Complaint: Constipation, pain Source: Patient Exam Limitations: No limitations - Personal History Current Tetanus Diphtheria and Acellular Pertussis (TDAP): Yes - Medical/Surgical History Hx Asthma: No Hx Chronic Respiratory Disease: No Hx Diabetes: No Hx Cardiac Disease: Yes Hx Renal Disease: No Hx Cirrhosis: No Hx Alcoholism: No Hx HIV/AIDS: No Hx Splenectomy or Spleen Trauma: No Other PMH: [place] 07, [place]PASS 08,echo 11-09-2013-nml. HYST. ANX/ DEPR/MOOD/ COGNITIVE - Social History Smoking Status: Never smoked Time Seen by Provider: 07/14/17 21:14 HPI/ROS: CHIEF COMPLAINT: Constipation HISTORY OF PRESENT ILLNESS: The patient presents the emergency department with complaints of constipation. The patient typically is on MiraLax and stool softeners which she might not have taken for the past 2 days. The patient reports is been 3 days since she has a bowel movement. She is having lower rectal pressure pain. The patient denies any fever, vomiting, cough or congestion. She has no complaints of dysuria. REVIEW OF SYSTEMS: A comprehensive 10 point review of systems is otherwise negative aside from elements mentioned in the history of present illness. (Aaron Rios) - Physical Exam Exam: General Appearance: Alert, no distress Eyes: Pupils equal and round no pallor or injection ENT, Mouth: Mucous membranes moist Respiratory: There are no retractions, lungs are clear to auscultation Cardiovascular: Regular rate and rhythm Gastrointestinal: Abdomen is soft and nontender, no masses, bowel sounds normal Rectal: Brown stool high in the rectum, no hard impaction noted Neurological: A&O, normal motor function, normal sensory exam, normal cranial nerves Skin: Warm and dry, no rashes Musculoskeletal: Neck is supple nontender Extremities: symmetrical, full range of motion (Aaron Rios) Constitutional: Initial Vital Signs Temperature (C) 36.4 C 07/14/17 21:06 Heart Rate 98 07/14/17 21:06 Respiratory Rate 20 07/14/17 21:06 Blood Pressure 138/77 H 07/14/17 21:06 O2 Sat (%) 94 07/14/17 21:06 O2 Delivery Mode Room Air Allergies/Adverse Reactions: alendronate sodium [From Fosamax] Allergy (Unknown, Verified 07/14/17 21:06) Other-Enter Comments clopidogrel bisulfate [From Plavix] Allergy (Verified 07/14/17 21:06) Rash Home Medications: Medication Instructions Recorded Herbals/Supplements -Info Only 1 ea PO DAILY 11/17/13 Multivitamins [Multivitamin (*)] 1 each PO DAILY 11/17/13 Rosuvastatin Calcium [Crestor 40mg 40 mg PO DAILY18 #30 tab 12/09/13 (*)] Ticagrelor [Brilinta] 90 mg PO BID #60 tab 12/09/13 Quetiapine Fumarate [Seroquel Xr] 150 mg PO HS 04/12/14 fluvoxaMINE MALEATE [Luvox 100 MG 150 mg PO DAILY 04/12/14 (*)] C/E/Zn/Cu/OM3/DHA/EPA/LUT/ZEAX 1 each PO BID 08/19/16 [Preservision Areds 2 Softgel] Cholecalciferol Vit D3 [Vitamin D3 1,000 units PO DAILY 08/19/16 (*)] LORazepam [Ativan (*)] 0.5 mg PO BID PRN 08/19/16 Pantoprazole Sodium [Protonix] 20 mg PO DAILY 08/19/16 Potassium 99 mg PO BID 08/19/16 Albuterol [Proventil Inhaler HFA 1 - 2 puffs IH Q4H #1 mdi 08/24/16 (*)] guaiFENesin [Mucinex 600 MG (*)] 1,200 mg PO BID tab.er 08/24/16 Hydrocortisone [Procto-Med Hc] 30 gm RC BID #1 cream.appl 07/14/17 Medical Decision Making ED Course/Re-evaluation: Patient presents to the ED with constipation. She was given a enema in the emergency department. I find her abdominal examination to be benign. Initial attempts were made conservative management with enemas. The patient will be turned over to Dr. Donaldson at shift change. (Aaron Rios) [id number]: Patient re-evaluated she did have a bowel movement here and is feeling much better. I did go and examine her abdomen is soft nontender she is not vomiting she would like to go home. She complains of hemorrhoidal pain at times and states that she has hemorrhoids. I have prescribed her Proctofoam. Additionally her daughter and at bedside states that she has a very raw skin. I recommend he gets Diaper Rash paste to help with her discomfort. They are comfortable going home. Return precautions discussed. Feels much better after having a bowel movement here in the emergency room after enema. (Roel Donaldson) Differential Diagnosis: Differential diagnosis considered includes constipation, impaction, dehydration (Aaron Rios) Departure - Departure Disposition: Home, Routine, Self-Care Clinical Impression: Constipation Qualifiers: Constipation type: slow transit constipation Qualified Code(s): K59.01 - Slow transit constipation Condition: Good Instructions: Constipation (ED) Additional Instructions: 1. Return emergency room if develops worsening abdominal pain vomiting or fever or you do not feel well. Referrals: José Miguel Joseph MD [Primary Care Provider] - As per Instructions Prescriptions: Hydrocortisone [Procto-Med Hc] 30 gm RC BID #1 cream.appl
[2017-07-14 23:35] VITALS: BP 142/81
== END 2017-07-14 23:35 | disposition home or self-care (01) ==
DX: K59.01 Slow transit constipation (principal); I25.2 Old myocardial infarction

== ENCOUNTER 2018-04-24 13:59 | Emergency (ER) | payer OTHER ==
--- NOTE | 2018-04-24 15:11 | EDPHY ---
H & P Time Seen by Provider: 04/24/18 14:50 HPI/ROS: CHIEF COMPLAINT: Constipation HISTORY OF PRESENT ILLNESS: Patient brought in with her family for complaints of constipation. Apparently she had a loose watery stool 1 week ago and then she was given 2 Imodium and has not had a bowel movement since. She does not have abdominal pain she has a feeling that she needs to have bowel movement and cannot. No vomiting. No fever or chills. She took Senokot today and 1 cap full of MiraLax and a glass of water. She apparently has had a long history with constipation spanning several decades, per family. REVIEW OF SYSTEMS: Eye: no change in vision ENT: no sore throat Cardiac: no chest pain or syncope Pulmonary: no cough or SOB Abdomen: HPI Musculoskeletal: no back pain Skin: no rash Neuro: no headache Constitutional: no fever : no urinary symptoms A comprehensive 10 point review of systems is otherwise negative aside from elements mentioned in the history of present illness. PAST MEDICAL HISTORY: Includes Cardiac bypass an CA, hysterectomy, constipation , anxiety Social history: Here with and her son General Appearance: Alert and conversant, cooperative. Eyes: No scleral icterus. ENT, Mouth: Normal mucous membranes. Respiratory: Normal respiratory effort, breath sounds equal, lungs are clear to auscultation. Cardiovascular: Regular rate and rhythm. Gastrointestinal: Abdomen is soft and non tender. Not distended, normal bowel sounds, no peritoneal signs. Neurological: Alert, face symmetric, normal motor and sensory in extremities. She has a resting tremor greater in her right arm that her left which the family says is baseline especially when she has anxiety Skin: Warm and dry, no rashes. Musculoskeletal: No peripheral edema. Psychiatric: Mildly anxious. Emergency Department course/MDM: Rectal exam was performed by myself and a large amount of soft and hard stools removed from the vault manually. No blood, no melena. Patient and family were reassured that she has been disimpacted. She can continue with her constipation treatment at home. Think it is unlikely that she has GI bleed, bowel obstruction, acute surgical abdominal process. Smoking Status: Never smoked Constitutional: Initial Vital Signs Temperature (C) 36.8 C 04/24/18 14:13 Heart Rate 89 04/24/18 14:13 Respiratory Rate 18 04/24/18 14:13 Blood Pressure 144/89 H 04/24/18 14:13 O2 Sat (%) 94 04/24/18 14:13 O2 Delivery Mode Room Air Allergies/Adverse Reactions: alendronate sodium [From Fosamax] Allergy (Unknown, Verified 04/24/18 14:16) Other-Enter Comments clopidogrel bisulfate [From Plavix] Allergy (Verified 04/24/18 14:16) Rash Home Medications: Medication Instructions Recorded Herbals/Supplements -Info Only 1 ea PO DAILY 11/17/13 Multivitamins [Multivitamin (*)] 1 each PO DAILY 11/17/13 Rosuvastatin Calcium [Crestor 40mg 40 mg PO DAILY18 #30 tab 12/09/13 (*)] Ticagrelor [Brilinta] 90 mg PO BID #60 tab 12/09/13 Quetiapine Fumarate [Seroquel Xr] 150 mg PO HS 04/12/14 fluvoxaMINE MALEATE [Luvox 100 MG 150 mg PO DAILY 04/12/14 (*)] C/E/Zn/Cu/OM3/DHA/EPA/LUT/ZEAX 1 each PO BID 08/19/16 [Preservision Areds 2 Softgel] Cholecalciferol Vit D3 [Vitamin D3 1,000 units PO DAILY 08/19/16 (*)] LORazepam [Ativan (*)] 0.5 mg PO BID PRN 08/19/16 Pantoprazole Sodium [Protonix] 20 mg PO DAILY 08/19/16 Potassium 99 mg PO BID 08/19/16 Albuterol [Proventil Inhaler HFA 1 - 2 puffs IH Q4H #1 mdi 08/24/16 (*)] guaiFENesin [Mucinex 600 MG (*)] 1,200 mg PO BID tab.er 08/24/16 Hydrocortisone [Procto-Med Hc] 30 gm RC BID #1 cream.appl 07/14/17 MDM/Departure - Depart Disposition: Home, Routine, Self-Care Clinical Impression: Constipation Condition: Good Instructions: Constipation (ED) Additional Instructions: Please continue with increasing oral fluid intake. You can take senna as you' re doing. Also okay to take 1 cap full of MiraLax or equivalent, mixed with an 8 oz glass of water every 4 hr until you have another bowel movement. Referrals: Sergey Snow MD [Primary Care Provider] - As per Instructions
[2018-04-24 15:21] VITALS: BP 107/64
== END 2018-04-24 15:40 | disposition home or self-care (01) ==
DX: K59.00 Constipation, unspecified (principal)

== ENCOUNTER → 2018-05-20 | Outpatient (CLI) | payer OTHER | LOC: BMCIMAGING 08:58 | PROVIDERS: ATTEND Internal Medicine Gastroenterology | DX: R19.01 Right upper quadrant abdominal swelling, mass and lump (principal) ==

== ENCOUNTER → 2018-05-22 | Outpatient (CLI) | payer OTHER | LOC: FIMAGING 08:11 | PROVIDERS: ATTEND Internal Medicine Gastroenterology | DX: K76.0 Fatty (change of) liver, not elsewhere classified (principal) ==